=== PATIENT | female | born 1965 | race Caucasian/White ===

== ENCOUNTER 2016-09-07 06:02 | Day surgery (SDC) | payer OTHER ==
--- NOTE | ~2016-09-07 | EGD ---
EGD REPORT [facility] [address] [address] NAME: LISA PEREIRA : [birth year] STATUS : REG [facility]#: [id number] AGE: 51 ADM/REG DATE : 09/07/16 MR#: [id number] REPORT SERV DATE: 09/07/16 DICTATED BY: JOSELUIS CANALES DATE: 09/07/16 REPORT STATUS : Draft TRANSCRIBED BY: [facility] DATE: 09/07/16 Endoscopy Center Patient Name: Lisa Pereira Date of : 1965 Attending MD: JOSELUIS CANALES MD Procedure Date No Time: 09/07/2016 Procedure: Upper GI endoscopy Indications: Abdominal pain in the left upper quadrant, Dyspepsia, Heartburn Medicines: Monitored Anesthesia Care Complications: No immediate complications. Procedure: Pre-Anesthesia Assessment: - ASA Grade Assessment: III - A patient with severe systemic disease. After obtaining informed consent, the endoscope was passed under direct vision. Throughout the procedure, the patient's blood pressure, pulse, and oxygen saturations were monitored continuously. The GIF H190 [id number] was introduced through the mouth, and advanced to the second part of duodenum. The upper GI endoscopy was accomplished without difficulty. The patient tolerated the procedure well. Findings: [place] near anus seen on retroflexion. Biopsies were taken with a cold forceps for histology. A small hiatus hernia was present. S/P Sabi Fundiplication Patchy mild inflammation characterized by erosions and erythema was found in the gastric antrum. Biopsies were taken with a cold forceps for histology. The duodenal bulb and 2nd part of the duodenum were normal. Impression: - Hiatus hernia. - Gastritis. Biopsied. - Normal duodenal bulb and 2nd part of the duodenum. Recommendation: - Patient has a contact number available for emergencies. The signs and symptoms of potential delayed complications were discussed with the patient. Return to normal activities tomorrow. Written discharge instructions were provided to the patient. - Regular diet. - Follow an antireflux regimen. - Await pathology results. EGD REPORT [facility] [address] [facility] [place]. [address] NAME: LISA PEREIRA : [birth year] STATUS : REG [facility] PAT#: [id number] AGE: 51 ADM/REG DATE : 09/07/16 MR#: [id number] REPORT SERV DATE: 09/07/16 DICTATED BY: JOSELUIS CANALES DATE: 09/07/16 REPORT STATUS : Draft TRANSCRIBED BY: [employer] DATE: 09/07/16 Procedure Code(s): --- Professional --- 79399, Esophagogastroduodenoscopy, flexible, transoral; with biopsy, single or multiple Diagnosis Code(s): --- Professional --- K44.9, Diaphragmatic hernia without obstruction or gangrene K29.70, Gastritis, unspecified, without bleeding R10.12, Left upper quadrant pain K30, Functional dyspepsia R12, Heartburn CPT copyright 2013 [employer]. All rights reserved. The codes documented in this report are preliminary and upon bridge maintainer review may be revised to meet current compliance requirements. JOSELUIS CANALES MD 09/07/2016 7:45 AM This report has been signed electronically. Number of Addenda: 0 Note Initiated On: 09/07/2016 7:35 AM Scope Withdrawal Time 0 hours 0 minutes 0 seconds [address] [place] [address]
--- NOTE | ~2016-09-07 | EGD ---
EGD REPORT [facility] [address] [address] NAME: LISA OTOOLE : [birth year] STATUS : REG [facility]#: [id number] AGE: 51 ADM/REG DATE : 09/07/16 MR#: [id number] REPORT SERV DATE: 09/07/16 DICTATED BY: JOSELUIS CANALES DATE: 09/07/16 REPORT STATUS : Draft TRANSCRIBED BY: [facility] DATE: 09/07/16 Endoscopy Center Patient Name: Lisa Otoole Date of : 1965 Attending MD: JOSELUIS CANALES MD Procedure Date No Time: 09/07/2016 Procedure: Colonoscopy Indications: Screening for colorectal malignant neoplasm Medicines: Monitored Anesthesia Care Complications: No immediate complications. Procedure: Pre-Anesthesia Assessment: - ASA Grade Assessment: III - A patient with severe systemic disease. After I obtained informed consent, the scope was passed under direct vision. Throughout the procedure, the patient's blood pressure, pulse, and oxygen saturations were monitored continuously. The PCF [id number] was introduced through the anus and advanced to the terminal ileum, with identification of the appendiceal orifice and IC valve. The colonoscopy was performed with moderate difficulty due to significant looping and a tortuous colon. Successful completion of the procedure was aided by applying abdominal pressure. The patient tolerated the procedure well. The quality of the bowel preparation was good. Findings: The digital rectal exam was normal. Pertinent negatives include no palpable rectal lesions. Hemorrhoids were found during retroflexion and were mild. A sessile polyp was found in the ascending colon. The polyp was 4 mm in size. The polyp was removed with a cold biopsy forceps. Resection and retrieval were complete. A sessile polyp was found in the sigmoid colon. The polyp was 4 mm in size. The polyp was removed with a cold biopsy forceps. Resection and retrieval were complete. Impression: - Hemorrhoids. - One 4 mm polyp in the ascending colon. Resected and retrieved. - One 4 mm polyp in the sigmoid colon. Resected and retrieved. Recommendation: - Patient has a contact number available for emergencies. The signs and symptoms of potential delayed EGD REPORT [address] [place]. [address] NAME: LISA OTOOLE : [birth year] STATUS : REG [facility] [place] [place] PAT#: [id number] AGE: 51 ADM/REG DATE : 09/07/16 MR#: [id number] REPORT SERV DATE: 09/07/16 DICTATED BY: JOSELUIS CANALES DATE: 09/07/16 REPORT STATUS : Draft TRANSCRIBED BY: [employer] [facility] DATE: 09/07/16 complications were discussed with the patient. Return to normal activities tomorrow. Written discharge instructions were provided to the patient. - Regular diet. - Continue present medications. - Await pathology results. - Repeat colonoscopy in 5-10 years for surveillance based on pathology results. - Return to GI clinic in 2 months. Procedure Code(s): --- Professional --- 64942, Colonoscopy, flexible, proximal to splenic flexure; with biopsy, single or multiple Diagnosis Code(s): --- Professional --- K64.9, Unspecified hemorrhoids D12.5, Benign neoplasm of sigmoid colon D12.2, Benign neoplasm of ascending colon Z12.11, Encounter for screening for malignant neoplasm of colon CPT copyright 2013 [employer]. All rights reserved. The codes documented in this report are preliminary and upon shipyard supervisor review may be revised to meet current compliance requirements. JOSELUIS CANALES MD 09/07/2016 8:10 AM This report has been signed electronically. Number of Addenda: 0 Note Initiated On: 09/07/2016 7:31 AM Scope Withdrawal Time 0 hours 7 minutes 38 seconds [address] [place] [place] [address]
[~2016-09-07 06:02] MED LIST: ACIPHEX PO; ADVAIR INH; ALKA-SELTZER H1 EACH PO; ALLEGRA180 PO; ASMANEX INH; BREO ELLIPTA 21 EACH INH; CARASPUDL PO; CINNAMONPO PO; CORTEF20 MG PO; D 5000 PO; FLONASE NAS; LEVSINTAB PO; LEXAPRO10 PO; LIBRAX PO; MAGOX4 PO; NASAL MOIST0.65 % NAS; NEXIUM40 PO; P20 PO; PRILO PO; PROAIR HFA INH; SINGULAIR1 PO; TUMERIC PO; UNIPHYL 400 MG400 MG PO; [UNRECOGNIZED DRUG - REMARK] PO
== END 2016-09-07 23:59 | disposition home or self-care (01) ==
LOC: DMU 06:02
PROVIDERS: Internal Medicine Gastroenterology
PROC: 0DBK8ZZ Excision of Ascending Colon, Via Natural or Artificial Opening Endoscopic (ICD-10-PCS; 2016-09-07)
PROC: 0DBN8ZZ Excision of Sigmoid Colon, Via Natural or Artificial Opening Endoscopic (ICD-10-PCS; 2016-09-07)
PROC: 0DB68ZX Excision of Stomach, Via Natural or Artificial Opening Endoscopic, Diagnostic (ICD-10-PCS; principal; 2016-09-07 07:30)
PROC: 0DB58ZX Excision of Esophagus, Via Natural or Artificial Opening Endoscopic, Diagnostic (ICD-10-PCS; 2016-09-07 07:30)
DX: Z12.11 Encounter for screening for malignant neoplasm of colon (principal); D12.2 Benign neoplasm of ascending colon; D12.5 Benign neoplasm of sigmoid colon; B37.81 Candidal esophagitis; K44.9 Diaphragmatic hernia without obstruction or gangrene; K64.9 Unspecified hemorrhoids; K21.9 Gastro-esophageal reflux disease without esophagitis; J44.9 Chronic obstructive pulmonary disease, unspecified; J45.909 Unspecified asthma, uncomplicated; H26 Other cataract; Z87.01 Personal history of pneumonia (recurrent); Z90.710 Acquired absence of both cervix and uterus; Z98.890 Other specified postprocedural states; Z79.51 Long term (current) use of inhaled steroids; Z79.899 Other long term (current) drug therapy
CPT/HCPCS: 88305; 94640